=== PATIENT | female | born 1995 | race Hispanic/Latino ===

== ENCOUNTER 2021-12-15 22:43 | Emergency (ER) | payer OTHER ==
[2021-12-15 23:29] LABS: Hematocrit 40.6 % (36.0-45.0); Lymphocytes % 26.7 % (15.3-44.8); MCV 79.6 fL (80-100); MPV 8.7 fL (7.6-11.3)
[2021-12-15 23:40] LABS: Albumin 3.3 g/dL (3.4-5.0); Bilirubin Total 0.3 mg/dL (0.2-1.0); Potassium 3.8 mmol/L (3.5-5.1); Protein, Total 7.8 g/dL (6.4-8.2)
[2021-12-15] MEDS ORDERED: KETOROLAC 30 MG/ML INJ ONE (23:40)
[2021-12-15] MEDS ORDERED: ONDANSETRON 4 MG/2 ML VIAL ONE (23:40)
[2021-12-15] MEDS ORDERED: FAMOTIDINE 20 MG/2 ML VIAL IV ONE (23:41)
[2021-12-15] MEDS ORDERED: NA CHLORIDE 0.9% 1,000 ML ONE (23:41)
--- NOTE | 2021-12-16 00:36 | EDPHYS ---
Physician Documentation [facility] Name: Catracho Crocker Age: 26 yrs Sex: Female : 1995 Arrival Date: 12/15/2021 Time: 22:45 Bed 16 Private MD: ED Physician Justino Teixeira HPI: 12/15 23:54 This 26 yrs old Female presents to ER via Ambulatory with complaints of Flank kb Pain. 23:54 The patient has not experienced similar symptoms in the past. kb 23:54 The patient presents with abdominal pain in the right upper quadrant. Onset: The kb symptoms/episode began/occurred 1 week(s) ago. The symptoms radiate to right back. Associated signs and symptoms: none. The symptoms are described as constant. Modifying factors: The symptoms are alleviated by nothing, the symptoms are aggravated by breathing deeply, pressure. Severity of pain: At its worst the pain was moderate in the emergency department the pain is unchanged. The patient has not recently seen a physician. Pt reports RUQ pain that started a week ago. States the pain is constant, worse when laying flat. Pain radiates to back and right shoulder. . 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 ROS: 23:54 Constitutional: Negative for fever, chills, and weight loss. kb 23:54 Abdomen/GI: Positive for abdominal pain, Negative for nausea, vomiting, and diarrhea. 23:54 All other systems are negative. Exam: 23:54 Constitutional: This is a well developed, well nourished patient who is awake, alert, kb and in no acute distress. Head/Face: Normocephalic, atraumatic. ENT: Moist Mucous membranes Cardiovascular: Regular rate and rhythm with a normal S1 and S2. No gallops, murmurs, or rubs. No pulse deficits. Respiratory: Respirations even and unlabored. No increased work of breathing. Talking in full sentences Skin: Warm, dry with normal turgor. Normal color. MS/ Extremity: Pulses equal, no cyanosis. Neurovascular intact. Full, normal range of motion. Neuro: Awake and alert, GCS 15, oriented to person, place, time, and situation. Moves all extremities. Normal gait. Psych: Awake, alert, with orientation to person, place and time. Behavior, mood, and affect are within normal limits. 23:54 Abdomen/GI: Inspection: abdomen appears normal, Bowel sounds: normal, in all quadrants, Palpation: soft, in all quadrants, moderate abdominal tenderness, in the right upper quadrant. Vital Signs: 22:59 BP 122 / 85; Pulse 108; Resp 22 S; Temp 97(TE); Pulse Ox 100% on R/A; Weight 104.33 kg bb (R); Height 5 ft. 5 in. (165.10 cm) (R); 23:16 BP 122 / 85; Pulse 100; Resp 20 S; Pulse Ox 100% on R/A; Pain 7/10; ha1 12/16 00:20 BP 123 / 82; Pulse 99; Resp 20 S; Pulse Ox 100% on R/A; Pain 0/10; ha1 12/15 22:59 Body Mass Index 38.27 (104.33 kg, 165.10 cm) bb MDM: 12/15 22:59 Patient medically screened. kb 23:53 Data reviewed: vital signs, nurses notes. Data interpreted: Pulse oximetry: on room air kb is 100 %. Interpretation: normal. 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 12/15 22:59 Order name: CBC with Diff; Complete Time: 23:35 kb 12/15 22:59 Order name: CMP; Complete Time: 23:50 kb 12/15 22:59 Order name: Lipase; Complete Time: 23:50 kb 12/15 22:59 Order name: Abdomen Limited US kb 12/16 00:54 Order name: Urine Dipstick-Ancillary EDMS 12/15 22:59 Order name: IV Saline Lock; Complete Time: 23:14 kb 12/15 22:59 Order name: Labs collected and sent; Complete Time: 23:14 kb Administered Medications: 12/15 23:50 Drug: Ketorolac 30 mg Route: IVP; Site: right antecubital; 1 12/16 00:41 Follow up: Response: No adverse reaction; Pain is decreased 12/15 23:51 Drug: NS 0.9% 1000 ml Route: IV; Rate: 1 bolus; Site: right antecubital; 1 12/16 01:07 Follow up: Response: No adverse reaction; IV Status: Completed infusion; IV Intake: ha1 1000ml 12/15 23:51 Drug: Pepcid (famotidine) 20 mg Route: IVP; Site: right antecubital; 1 12/16 00:41 Follow up: Response: No adverse reaction 12/15 23:51 Drug: Zofran (Ondansetron) 4 mg Route: IVP; Site: right antecubital; ha1 12/16 00:41 Follow up: Response: No adverse reaction; Nausea is decreased Disposition: 02:03 Co-signature as Attending Physician, Justino Teixeira MD I agree with the assessment and kdr plan of care. Disposition Summary: 12/16/21 00:36 Discharge Ordered Location: Home kb Condition: Stable kb Diagnosis - Upper abdominal pain, unspecified kb Followup: kb - With: Emergency Department - When: As needed - Reason: Worsening of condition Followup: kb - With: Private Physician - When: 2 - 3 days - Reason: Recheck today's complaints, Continuance of care, Re-evaluation by your physician Discharge Instructions: - Discharge Summary Sheet kb - Biliary Colic, Adult kb - Abdominal Pain, Adult, [id number] kb Forms: - Medication Reconciliation Form kb - Thank You Letter kb - Antibiotic Education kb - Prescription Opioid Use kb Prescriptions: - dicyclomine 20 mg Oral Tablet - take 1 tablet by ORAL route 4 times per day As needed; 20 tablet; Refills: 0, kb Product Selection Permitted Signatures: Dispatcher [employer] Yoly Mayorga, DEONTE-C INSTRUCTIONAL DESIGN SPECIALIST-Justino Ortiz MD MD kdr Ballard, Brenda, RN RN bb Tala Marroquin RN RN ha1
--- NOTE | 2021-12-16 00:36 | ER ---
Nurse's Notes [facility] Name: Catracho Crocker Age: 26 yrs Sex: Female : 1995 Arrival Date: 12/15/2021 Time: 22:45 Bed 16 [facility] MD: Diagnosis: Upper abdominal pain, unspecified Presentation: 12/15 22:59 Chief complaint: Patient states: right upper quad pain x 1 week radiating to back. bb Coronavirus screen: At this time, the client does not indicate any symptoms associated with coronavirus-19. Ebola Screen: No symptoms or risks identified at this time. Initial Sepsis Screen: Does the patient meet any 2 criteria? No. Patient's initial sepsis screen is negative. Does the patient have a suspected source of infection? No. Patient's initial sepsis screen is negative. Risk Assessment: Do you want to hurt yourself or someone else? Patient reports no desire to harm self or others. Onset of symptoms was December 08, 2021. 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 Screenin:16 Abuse screen: Denies threats or abuse. ha1 23:16 Nutritional screening: No deficits noted. Tuberculosis screening: No symptoms or risk ha1 factors identified. Fall Risk None identified. Gait- Normal/Bed Rest/Wheelchair (0 pts). Assessment: 23:16 General: Appears comfortable, Behavior is calm, cooperative. Pain: Complains of pain in ha1 right upper quadrant of abdomen Pain radiates to the right shoulder Pain at worst was 9 out of 10 on a pain scale. Quality of pain is described as crampy, Pain began over a week Is intermittent, Alleviated by medications, rest, Aggravated by eating, increased activity, Also complains of nausea. Neuro: No deficits noted. Level of Consciousness is awake, alert, obeys commands, Oriented to person, place, time, situation, Gait is steady. Cardiovascular: No deficits noted. Denies chest pain, shortness of breath, Heart tones S1 S2 present Capillary refill < 3 seconds. Respiratory: No deficits noted. Airway is patent Respiratory effort is even, unlabored, Respiratory pattern is regular, symmetrical. GI: Abdomen is non-distended, obese, Bowel sounds present X 4 quads. Reports upper abdominal pain. : No signs and/or symptoms were reported regarding the genitourinary system. EENT: No signs and/or symptoms were reported regarding the EENT system. Derm: Skin is intact, is healthy with good turgor, Skin is pink, warm \T\ dry. Musculoskeletal: No deficits noted. No signs and/or symptoms reported regarding the musculoskeletal system. Capillary refill < 3 seconds, Range of motion: intact in all extremities. 12/16 00:54 Reassessment: Patient and/or family updated on plan of care and expected duration. Pain ha1 level reassessed. Patient is alert, oriented x 3, equal unlabored respirations, skin warm/dry/pink. being discharged Patient states feeling better. Vital Signs: 12/15 22:59 BP 122 / 85; Pulse 108; Resp 22 S; Temp 97(TE); Pulse Ox 100% on R/A; Weight 104.33 kg bb (R); Height 5 ft. 5 in. (165.10 cm) (R); 23:16 BP 122 / 85; Pulse 100; Resp 20 S; Pulse Ox 100% on R/A; Pain 7/10; ha1 12/16 00:20 BP 123 / 82; Pulse 99; Resp 20 S; Pulse Ox 100% on R/A; Pain 0/10; ha1 12/15 22:59 Body Mass Index 38.27 (104.33 kg, 165.10 cm) ED Course: 12/15 22:45 Patient arrived in ED. ja2 22:53 Yoly Robles FNP-C is [facility]. kb 22:53 Justino Teixeira MD is Attending Physician. kb 23:01 Triage completed. bb 23:01 Arm band placed on Patient placed in an exam room, on a stretcher, on pulse oximetry. bb 23:14 Lipase Sent. 5 23:14 CMP Sent. 5 23:14 CBC with Diff Sent. 5 23:14 Initial lab(s) drawn, by ct, sent to lab. Inserted saline lock: 22 gauge in right mh5 antecubital area, using aseptic technique. Blood collected. 23:29 Kiara Carroll, RN is Primary Nurse. abby 23:39 Abdomen Limited US In Process Unspecified. EDMS 23:50 Tala Marroquin RN is Primary Nurse. ha1 12/16 01:03 No provider procedures requiring assistance completed. IV discontinued, intact, ha1 bleeding controlled, No redness/swelling at site. Pressure dressing applied. 01:05 Patient has correct armband on for positive identification. Placed in gown. Bed in low ha1 position. Call light in reach. Side rails up X 1. Administered Medications: 12/15 23:50 Drug: Ketorolac 30 mg Route: IVP; Site: right antecubital; ha1 12/16 00:41 Follow up: Response: No adverse reaction; Pain is decreased ha1 12/15 23:51 Drug: NS 0.9% 1000 ml Route: IV; Rate: 1 bolus; Site: right antecubital; ha1 12/16 01:07 Follow up: Response: No adverse reaction; IV Status: Completed infusion; IV Intake: ha1 1000ml 12/15 23:51 Drug: Pepcid (famotidine) 20 mg Route: IVP; Site: right antecubital; ha1 12/16 00:41 Follow up: Response: No adverse reaction ha1 12/15 23:51 Drug: Zofran (Ondansetron) 4 mg Route: IVP; Site: right antecubital; ha1 12/16 00:41 Follow up: Response: No adverse reaction; Nausea is decreased ha1 Medication: 01:06 VIS not applicable for this client. ha1 Intake: 01:07 IV: 1000ml; Total: 1000ml. ha1 Outcome: 00:36 Discharge ordered by MD. patino 01:04 Discharged to home ambulatory, with family. ha1 01:04 Condition: stable 01:04 Discharge instructions given to patient, Instructed on discharge instructions, follow up and referral plans. medication usage, Demonstrated understanding of instructions, follow-up care, medications, Prescriptions given X 1. 01:07 Patient left the ED. ha1 Signatures: Dispatcher [employer] EDTN Yoly Robles, INCIDENT COORDINATOR-C INCIDENT COORDINATOR-Kiara Lindquist RN RN bb Martinez, [facility] BlairZayra Heidy RN RN ha1 Corrections: (The following items were deleted from the chart) 01:07 00:42 Response: No adverse reaction; IV Intake: 1000ml ha1 ha1
[2021-12-16 00:53] LABS: Urine Blood Negative (Negative); Urine Glucose 2+ (Negative); Urine Protein Negative (Negative); Urine Specific Gravity >=1.030 (1.005-1.030); Urine pH 6.5 (5.0-7.0)
[2021-12-16 02:34] VITALS: TEMP 97; O2SAT 100
[2021-12-16 02:40] VITALS: BP 123/82
--- NOTE | 2021-12-16 14:26 | RAD REPORT ---
EXAM DESCRIPTION: US - Abdomen Exam Limited - 12/16/2021 12:06 am CLINICAL HISTORY: 26 years Female, ABD PAIN TECHNIQUE: Real-time transabdominal imaging of the right upper quadrant was performed. COMPARISON: None. FINDINGS: LIVER: Not imaged in its entirety. GALLBLADDER: Contracted gallbladder limiting detailed evaluation. No definite biliary sludge or shado wing gallstones. No abnormal wall thickening or pericholecystic fluid. Sonographic [place] sign: Ne gative. CBD/BILE DUCT: The common bile duct is not dilated, measuring 3 mm. No intra- or extrahepatic ducta l dilatation. PANCREAS: Nonvisualized secondary to obscuration by overlying bowel gas. OTHER: Noncontributory. IMPRESSION: 1. Contracted gallbladder limiting detailed evaluation. 2. No cholelithiasis or sonographic evidence for cholecystitis. Electronically signed by: Ravi Oleary MD 12/15/2021 11:57 PM CDT Due to temporary technical issues with the PACS/Fluency reporting system, reports are being signed by the in house radiologists without review as a courtesy to insure prompt reporting. The interpreting radiologist is fully responsible for the content of the report.
== END 2021-12-16 01:07 | disposition home or self-care (01) ==
LOC: ER 22:43
DX: R10.11 Right upper quadrant pain (principal); E11.9 Type 2 diabetes mellitus without complications
CPT/HCPCS: 85025; 36415; 81003; 83690; 80053; 76705; J7030; J2405; 96361; 96374; 96375; 99284